=== PATIENT | female | born 1945 | race Caucasian/White ===

== ENCOUNTER → 2017-01-16 | Day surgery (SDC) | payer MEDICARE, OTHER ==
[~2017-01-16] MED LIST: BUPIVACAINE HCL PF 0.5% 10 ML VIAL ONE; LACTATED RINGER'S 1000 ML INJ 1,000 ML ONE; MIDAZOLAM HCL 2 MG/2 ML VIAL ONE; PROPOFOL 200 MG/20 ML AMP IV ONE; ceFAZolin INJ 1,000 MG VIAL ONE
--- NOTE | 2017-01-20 17:14 | MP ---
cc: CATARINA CARRERA DATE OF SURGERY: 01/16/2017 PREOPERATIVE DIAGNOSIS Right hand carpal tunnel syndrome POSTOPERATIVE DIAGNOSES Right hand carpal tunnel syndrome PROCEDURE Right hand carpal tunnel release. SURGEON Dr. Catarina Carrera ANESTHESIA General. ESTIMATED BLOOD LOSS: Less than 10 cc TOURNIQUET TIME: Zero. COMPLICATIONS: None. JUSTIFICATION: This patient is a 71 year-old female with right hand pain and numbness, symptoms consistent with carpal tunnel syndrome. She was evaluated by the undersigned at the [facility] and counseled as to the risks, benefits and alternatives to the above mentioned surgical procedure. She did wish to proceed with surgery. PROCEDURE IN DETAIL Written consent was obtained. The patient identified by name, taken to the operating room, placed in the supine position. General anesthesia was administered as well as 1 gram of IV Ancef. The right upper extremity prepped and draped using isopropyl alcohol, Hibiclens solution and DuraPrep solution. After time-out was performed 5 cc of 0.25% plain Marcaine was injected in the region of the palmar crease. A longitudinal incision was made along the ulnar border of the palmar crease. Dissection was carried down to the level of the transverse carpal ligament. A 15 blade scalpel was used to release the transverse carpal ligament with careful attention paid to protect the median nerve. The wound was thoroughly irrigated with sterile saline solution. The subcutaneous layer was closed with 4-0 Vicryl suture. The skin incision was closed with 4-0 nylon suture. Sterile dressing was applied. The patient was placed in a soft hand lateral dressing. She tolerated the procedure well. No intraoperative complication noted. MD LAYLA Casillas/MICHELLE /9:03 AM /5:05 PM
== END | disposition home or self-care (01) ==
LOC: ESDC 07:14
PROVIDERS: ATTEND Orthopaedic Surgery Sports Medicine
DX: G56.01 Carpal tunnel syndrome, right upper limb (principal)
CPT/HCPCS: 01810; 64721; J0690; J2250; J3010; J7120

== ENCOUNTER 2018-01-22 09:16 | Emergency (ER) | payer MEDICARE, OTHER ==
[2018-01-22 09:20] VITALS: BP 118/60; PULSE 72; RESP 16; TEMP 97.9; O2SAT 98
[2018-01-22] MEDS ORDERED: MULTTAB67 PO (09:44)
[2018-01-22] MEDS ORDERED: CALC1TAB12 PO (09:44)
[2018-01-22] MEDS ORDERED: ONDANSETRON ODT 4 MG TAB PO ONE (09:45)
[2018-01-22] MEDS ORDERED: MORPHINE SULFATE 4 MG/ML INJ IM ONE (09:45)
--- NOTE | 2018-01-22 09:49 | PD ---
HPI Chief Complaint: Injury Time Seen by Provider: 09:36 Travel History International Travel<30 days: No Contact w/Intl Traveler<30days: No Traveled to known affect area: No History of Present Illness HPI 72-year-old female presents to the emergency department for evaluation of left arm pain after a trip and fall that occurred just prior to arrival. Patient states she tripped over a sprinkler head and fell on her left shoulder. She denies any head injury or LOC. She is not on anticoagulants. She denies any neck pain or back pain. No chest pain or abdominal pain. No hip or pelvic pain. No vomiting. She states she did feel nauseated after it happened. She was able to ambulate. Patient rates the pain 10/10 without radiation to the left shoulder/left humerus, aching and throbbing. Moderate severity. Exacerbating factors movement. Alleviating factor is keeping the arm still. PFSH Past Medical History Medical History: Denies Significant Hx Diminished Hearing: No Tetanus Vaccination: Unknown Influenza Vaccination: Yes ?: Not Past Surgical History Abdominal Surgery: Yes (lap) Appendectomy: Yes Social History Alcohol Use: Yes (soc) Tobacco Use: No Substance Use: No Allergies-Medications (Allergen,Severity, Reaction): Coded Allergies: No Known Allergies (Verified Allergy, Unknown, 01/22/18) Reported Meds & Prescriptions Reported Meds & Active Scripts Active Reported Multiple Vitamin 1 Tab 1 Tab PO DAILY Calcium 500 +D (Calcium Carbonate-Cholecalciferol) 500-400 Mg-Unit Tab 1 Tab PO BID Review of Systems Except as stated in HPI: all other systems reviewed are Neg Physical Exam Narrative GENERAL: Well-nourished, well-developed female patient, afebrile SKIN: Focused skin assessment warm/dry. No open areas. HEAD: Normocephalic. Atraumatic EYES: No scleral icterus. No injection or drainage. NECK: Supple, trachea midline. No JVD or lymphadenopathy. CARDIOVASCULAR: Regular rate and rhythm without murmurs, gallops, or rubs. Left radial pulses 2+ RESPIRATORY: Breath sounds equal bilaterally. No accessory muscle use. Lung sounds are clear to auscultation GASTROINTESTINAL: Abdomen soft, non-tender, nondistended. MUSCULOSKELETAL: No cyanosis, or edema. Patient has tenderness over left humeral head and left humerus. She has full sensation distal left upper extremity. BACK: Nontender without obvious deformity. No CVA tenderness. No midline spinal tenderness. Data Data Last Documented VS Vital Signs Date Time Temp Pulse Resp B/P (MAP) Pulse Ox O2 Delivery O2 Flow Rate FiO2 01/22/18 09:20 97.9 72 16 118/60 (79) 98 Orders Orders Shoulder, Limited(2vws) (01/22/18 ) Humerus (Min 2vws) (01/22/18 ) Morphine Inj (Morphine Inj) (01/22/18 09:45) Ondansetron Odt (Zofran Odt) (01/22/18 09:45) MDM Medical Decision Making Medical Screen Exam Complete: Yes Emergency Medical Condition: Yes Medical Record Reviewed: Yes Interpretation(s) Last Impressions Shoulder X-Ray 01/22/18 0000 Signed Impressions: Service Date/Time: Monday, January 22, 2018 09:59 - CONCLUSION: Multiple proximal humeral fractures without significant angulation or displacement. One of the fracture lines traverses the surgical neck. Ronald Harris MD Humerus X-Ray 01/22/18 0000 Signed Impressions: Service Date/Time: Monday, January 22, 2018 09:59 - CONCLUSION: Proximal humeral fractures. The shaft of the humerus is intact. Ronald Harris MD Differential Diagnosis Fracture versus dislocation versus sprain versus strain Narrative Course 72-year-old female presents to the emergency department for evaluation of left shoulder injury that occurred after a trip and fall. She denies any other injury. X-ray left shoulder and humerus are ordered and pending. Patient was given morphine 4 mg IM, Zofran 4 mg ODT for pain. X-ray of the left shoulder shows multiple proximal humeral fracture without significant angulation or displacement, the fracture lines transverses the surgical neck. X-ray of the left humerus shows proximal humeral fracture, the shaft of the humerus is intact. Patient is provided sling and swath. She is instructed to follow-up with an orthopedist. She will be given a short-term prescription for Freeman Spur for pain. She verbalizes agreement and understanding. The patient was discharged in stable condition with instructions, including return instructions and follow up instructions. Diagnosis Primary Impression: Proximal humeral fracture Qualified Codes: S42.295A - Other nondisplaced fracture of upper end of left humerus, initial encounter for closed fracture Referrals: Alfie Simms MD call for appointment Patient Instructions: Arm Fracture in Adults (ED), General Instructions Additional Instructions: Wear sling and swath Take [place] Spur as directed as needed for pain. Cautioned this can make her drowsy so do not drive after taking. Ice for 20 minutes 4-5 times daily. Follow-up with an orthopedist. Return to the emergency department for any acute worsening of symptoms. Med/Other Pt SpecificInfo: Prescription(s) given Scripts Hydrocodone-Acetaminophen (Freeman Spur) 5 Mg-325 Mg Tab 1 TAB PO Q6H Y for PAIN, #16 TAB 0 Refills Prov: Inez Santos 01/22/18 Disposition: 01 DISCHARGE HOME Condition: Stable Inez Santos Jan 22, 2018 09:49
--- NOTE | 2018-01-22 11:27 | RADRPT ---
EXAM DATE/TIME: 01/22/2018 09:59 [facility] COMPARISON: No previous studies available for comparison. INDICATIONS : Left shoulder pain post fall this morning. MEDICAL HISTORY : None. SURGICAL HISTORY : Appendectomy. ENCOUNTER: Initial ACUITY: 1 day PAIN SCORE: 10/10 LOCATION: Left shoulder FINDINGS: There is a transverse fracture through the surgical neck of the humerus and a fracture through the gr eater tuberosity. There is no significant displacement or angulation. There is also discontinuity o f the cortex of the humeral head between the mid and inferior one third suggesting a 3rd fracture coni e. The visualized left upper ribs are intact. The a.c. joint is intact. CONCLUSION: Multiple proximal humeral fractures without significant angulation or displacement. One of the fract ure lines traverses the surgical neck. Ronald Harris MD on January 22, 2018 at 11:23 Board Certified Radiologist. This report was verified electronically.
--- NOTE | 2018-01-22 11:28 | RADRPT ---
EXAM DATE/TIME: 01/22/2018 09:59 [facility] COMPARISON: No previous studies available for comparison. INDICATIONS : Left shoulder/humerus pain post fall today. MEDICAL HISTORY : None. SURGICAL HISTORY : Appendectomy. ENCOUNTER: Initial ACUITY: 1 day PAIN SCORE: 10/10 LOCATION: Left proximal humerus FINDINGS: The shaft of the humerus is intact. Nondisplaced fractures of the proximal humerus involving surgica l neck of the greater tuberosity, and inferior articular surface. The visualized left ribs are intac t. CONCLUSION: Proximal humeral fractures. The shaft of the humerus is intact. Ronald Harris MD on January 22, 2018 at 11:25 Board Certified Radiologist. This report was verified electronically.
[2018-01-22] MEDS ORDERED: NORC5TAB PO (11:44)
[2018-01-22 12:23] VITALS: BP 111/65
== END 2018-01-22 12:24 | disposition home or self-care (01) ==
LOC: PHED 09:16
DX: S42.295A Other nondisplaced fracture of upper end of left humerus, initial encounter for closed fracture (principal); W01.0XXA Fall on same level from slipping, tripping and stumbling without subsequent striking against object, initial encounter
CPT/HCPCS: 29240; 73030; 73060; 96372; 99283; J2270